=== PATIENT | male | born 1950 | race American Indian/Alaskan Native ===

== ENCOUNTER → 2023-05-17 | Outpatient (CLI) | payer MEDICARE, OTHER ==
[~2023-05-17] MED LIST: AMLO10 PO; DALT10I SQ; HYDMOR2 PO; IBUP800 PO; LISI20 PO; LORA2 PO; OXYACE5T PO; PRAV20 PO
[2023-05-19 12:03] LABS: Stool Occult Bld Immuno 1 Negative (NEGATIVE)
== END ==
LOC: LAB SHORT 13:40 → LAB 13:40
PROVIDERS: Physician Assistant
DX: Z12.11 Encounter for screening for malignant neoplasm of colon (principal)
CPT/HCPCS: G0328

== ENCOUNTER → 2023-05-31 | Outpatient (CLI) | payer MEDICARE, OTHER | END | disposition home or self-care (01) | LOC: LAB 09:27 → LAB SHORT 09:27 | DX: R22.41 Localized swelling, mass and lump, right lower limb (principal) | CPT/HCPCS: 84550 ==

== ENCOUNTER → 2023-09-22 | Outpatient (CLI) | payer OTHER | LOC: LAB 15:00 → LAB SHORT 15:00 | DX: R31.9 Hematuria, unspecified (principal) | CPT/HCPCS: 87086 ==

== ENCOUNTER 2024-03-11 17:56 | Emergency (ER) | payer OTHER ==
[~2024-03-11] VITALS: Ht 165.1 cm; Wt 72.6 kg
[~2024-03-11 17:56] MED LIST changes: +PRED20 PO
[2024-03-11 18:31] VITALS: BP 151/81
== END 2024-03-11 18:51 | disposition left against medical advice (07) ==
LOC: ER 17:56
DX: M25.561 Pain in right knee (principal); Z53.21 Procedure and treatment not carried out due to patient leaving prior to being seen by health care provider
CPT/HCPCS: 99281